=== PATIENT | female | born 1960 | race African-American/Black ===

== ENCOUNTER 2017-12-30 18:45 | Emergency (ER) | payer SELFPAY ==
[~2017-12-30] VITALS: Ht 162.6 cm; Wt 76.4 kg
[2017-12-30 18:52] VITALS: Ht 162.6 cm; Wt 76.4 kg
[2017-12-30] MEDS ORDERED: GLUCOPHAGE1000 MG PO (18:57)
[2017-12-30] MEDS ORDERED: LANTUS INSULIN10 ML SC (18:57)
[2017-12-30] MEDS ORDERED: NORCO 7.5/325 T1 TA1 PO (18:58)
[2017-12-30] MEDS ORDERED: ZYRTEC10 MG PO (18:58)
[2017-12-30] MEDS ORDERED: TEMOVATE 0.05%15 G1 TOPICAL (19:54)
[2017-12-30 20:08] VITALS: BP 135/90
== END 2017-12-30 20:09 | disposition home or self-care (01) ==
LOC: D.ER 18:45
DX: S20.161A Insect bite (nonvenomous) of breast, right breast, initial encounter (principal); W57.XXXA Bitten or stung by nonvenomous insect and other nonvenomous arthropods, initial encounter; Y93.89 Activity, other specified; Y92.019 Unspecified place in single-family (private) house as the place of occurrence of the external cause; E11.9 Type 2 diabetes mellitus without complications; F17.200 Nicotine dependence, unspecified, uncomplicated